=== PATIENT | male | born 1975 | race Caucasian/White ===

== ENCOUNTER 2018-10-13 13:28 | Emergency (ER) | payer OTHER ==
[~2018-10-13] VITALS: Ht 190.5 cm; Wt 106.8 kg
[2018-10-13 13:47] VITALS: BP 119/74
--- NOTE | 2018-10-13 14:01 | NUR ---
TO TR 01
--- NOTE | 2018-10-13 14:02 | NUR ---
GAUZE APPLIED TO LACERATION. PT APPLYING PRESSURE OVER DRESSING
--- NOTE | 2018-10-13 14:05 | NUR ---
PT COMPLETING C4 FORM.
[2018-10-13] MEDS ORDERED: LIDOCAINE-MPF 1%, 5ML ONE (14:10)
[2018-10-13] MEDS ORDERED: CEFAZOLIN PMX 1GM/50ML 50 ML IVPB ONE (14:30)
[2018-10-13] MEDS ORDERED: LIDOCAINE-MPF 1%, 5ML INFIL ONE (14:30)
[2018-10-13] MEDS ORDERED: CEFAZOLIN 1,000 MG IM ONE (14:30)
--- NOTE | 2018-10-13 14:41 | NUR ---
IRRIGATION COMPLETED BY TECH
[2018-10-13] MEDS ORDERED: CEFAZOLIN 1,000 MG ONE (15:15)
--- NOTE | 2018-10-13 15:34 | NUR ---
I G ANCEF ADMINISTERED IM IN THE RIGHT BUTTOCKS.
--- NOTE | 2018-10-13 15:41 | NUR ---
CARE FOR DC PROVIDED. PT WITH DRESSING TO RIGHT THUMB, CDI. NO IV TO DC. REVIEWED DC INSTRUCTIONS WITH PT, PT TO F/U WITH [facility]. PT PROVIDED WITH 2 COPIES OF C4 FORM AND CERTIFICATE OF DISABILITY. ORIGINALS TAKEN TO REGISTRATION DESK. PT LEFT AMB, GAIT STEADY.
== END 2018-10-13 15:44 | disposition home or self-care (01) ==
LOC: ED 15:05
DX: S61.111A Laceration without foreign body of right thumb with damage to nail, initial encounter (principal); W26.9XXA Contact with unspecified sharp object(s), initial encounter; Y93.89 Activity, other specified; Y92.69 Other specified industrial and construction area as the place of occurrence of the external cause; Y99.0 Civilian activity done for income or pay
CPT/HCPCS: 64450; 99284

== ENCOUNTER 2018-10-17 17:24 | Emergency (ER) | payer OTHER ==
[~2018-10-17] VITALS: Ht 190.5 cm; Wt 104.0 kg
[2018-10-17] MEDS ORDERED: LIDOCAINE-MPF 1%, 5ML ONE (17:41)
[2018-10-17] MEDS ORDERED: LIDOCAINE 1%, 10ML INFIL ONE (18:00)
[2018-10-17] MEDS ORDERED: NEOSPORIN OINT. PKT 1 PACKET ONE (18:08)
--- NOTE | 2018-10-17 18:18 | NUR ---
SECOND INJECTION OF LIDOCAINE ADMINISTERED BY MARAL FRANCO IN ORDER TO REMOVE OLD DRESSING FROM R THUMB. WOUND IRRIGATED WITH NS AND CLEANED WITH IODINE. ABX OINTMENT APPLIED, DRESSED WITH XEROFORM, GAUZE, KERLIX. INSTRUCTED PT ON WOUND CARE AND DRESSING CHANGES.
[2018-10-17] MEDS ORDERED: ONDANSETRON ODT 4 MG PO ONE (18:30)
--- NOTE | 2018-10-17 18:42 | NUR ---
D/C INSTRUCTIONS, MEDS & F/U APPT RV'WD WITH PT, HE VERBALIZED UNDERSTANDING. PT ALREADY HAS RX FOR KEFLEX, INSTRUCTED TO FILL RX. PT AMBULATED OUT OF ED WITHOUT DIFFICULTY.
[2018-10-17 18:44] VITALS: BP 128/62
== END 2018-10-17 18:45 | disposition home or self-care (01) ==
LOC: ED 18:39
DX: S61.011D Laceration without foreign body of right thumb without damage to nail, subsequent encounter (principal); X58.XXXD Exposure to other specified factors, subsequent encounter; F17.200 Nicotine dependence, unspecified, uncomplicated
CPT/HCPCS: 99283; J3490; 99282